=== PATIENT | female | born 1935 | race Caucasian/White ===

== ENCOUNTER → 2016-08-07 | Outpatient (CLI) | payer OTHER, BC | LOC: BRMIMAGING 13:26 | DX: Z13.820 Encounter for screening for osteoporosis (principal); Z78.0 Asymptomatic menopausal state | CPT/HCPCS: G0202 ==

== ENCOUNTER → 2017-10-31 | Outpatient (CLI) | payer OTHER, BC | LOC: BRMIMAGING 11:18 | PROVIDERS: ATTEND Family Medicine | DX: Z12.31 Encounter for screening mammogram for malignant neoplasm of breast (principal) ==

== ENCOUNTER → 2018-04-08 | Outpatient (CLI) | payer OTHER, BC | LOC: CLAB 09:51 | PROVIDERS: ATTEND Family Medicine | DX: J40 Bronchitis, not specified as acute or chronic (principal); J45.21 Mild intermittent asthma with (acute) exacerbation | CPT/HCPCS: 71046-PO ==